=== PATIENT | female | born 1955 | race Caucasian/White ===

== ENCOUNTER 2024-12-15 17:41 | Emergency (ER) | payer MEDICARE, SELFPAY ==
[2024-12-15 17:48] VITALS: BP 134/92
[2024-12-15 18:49] VITALS: BP 134/90
[2024-12-15 19:00] VITALS: BP 129/90
--- NOTE | 2024-12-15 19:32 | ED.GENMED ---
History of Present Illness
<MEGAN Siegel - Last Filed: 12/15/24 22:08>
General
Chief Complaint: Eye Problems
Source: patient
Exam Limitations: none
Time Seen by Provider: 12/15/24 18:49
Nursing documentation reviewed up to this point in time: agreed with
History of Present Illness
History of Present Illness:
69-year-old yr old female who presents to the ER with complaints of left eye discomfort. She reports prior to arrival she was sitting having a glass of wine outside with her friend and suddenly noticed that her vision was foggy on her left eye and
then she is develop eye discomfort and a burning sensation. She complains of a sensation that there is something underneath her left upper eyelid. She denies however any foreign body in her eye that she recalls. Prior to my exam nurse reported
she also was c/o of a burning sensation in both of her lips , upper lower and b/l.
She does not wear contact lenses.Denies any rash to face/body. denies fevers .
Phy Exam
<MEGAN Siegel - Last Filed: 12/15/24 22:08>
General Physical Exam
General Presentation: no apparent distress
General age: appears stated age
General Skin: warm and dry
General Habitus: normal
General Mental: alert
General Hydration: appears well hydrated
Eye Exam
Eye Exam: PERRL, EOMI and other (Left cornea is injected no corneal abrasion examined with fluorescein no dye uptake, lid everted no foreign body on it appears irritated watery ; intraocular pressure 18 )
Able to obtain acuity?: Yes
Eye Exam General: PERRL: bilateral and EOM intact: bilateral
Pupil Exam: Bilateral: round and reactive
Neurological Exam
Neurological Exam: alert and oriented x3
Musculoskeletal Exam
Musculoskeletal Exam: full ROM
Skin Exam
Skin Exam: normal color, warm/dry and no rash
Psychiatric Exam
Psychiatric Exam: normal mood/affect
Course
<DESIREE SiegelNP - Last Filed: 12/15/24 22:08>
Orders/Labs/Results
Orders:
Orders
12/15/24 20:07
Ibuprofen [Motrin] 600 mg PO NOW STA
12/15/24 21:58
Erythromycin (Ilotycin) [Erythromycin 0.5% Ophthalmic Ointment] See Dose Instructions OPHTH NOW STA
Vital Signs
Initial and Last Documented VS:
Initial Vital Signs
Temp Pulse Resp BP Pulse Ox
97.8 F 81 18 134/92 99
12/15/24 17:48 12/15/24 17:48 12/15/24 17:48 12/15/24 17:48 12/15/24 17:48
Last Documented Vital Signs
Temp Pulse Resp BP Pulse Ox
97.8 F 102 18 148/90 98
12/15/24 17:48 12/15/24 22:03 12/15/24 22:03 12/15/24 22:03 12/15/24 19:47
Cornetist consulted with Physician
Cornetist consulted with physician?: Yes
Name of Physician Consulted: Radha
<Kamlesh Garcia, - Last Filed: 12/15/24 22:49>
Orders/Labs/Results
Orders:
Orders
12/15/24 20:07
Ibuprofen [Motrin] 600 mg PO NOW STA
12/15/24 21:58
Erythromycin (Ilotycin) [Erythromycin 0.5% Ophthalmic Ointment] See Dose Instructions OPHTH NOW STA
Vital Signs
Initial and Last Documented VS:
Initial Vital Signs
Temp Pulse Resp BP Pulse Ox
97.8 F 81 18 134/92 99
12/15/24 17:48 12/15/24 17:48 12/15/24 17:48 12/15/24 17:48 12/15/24 17:48
Last Documented Vital Signs
Temp Pulse Resp BP Pulse Ox
97.8 F 102 18 148/90 98
12/15/24 17:48 12/15/24 22:03 12/15/24 22:03 12/15/24 22:03 12/15/24 19:47
<MEGAN Siegel - Last Filed: 12/15/24 22:08>
MDM/Problems Addressed
Differential Diagnosis Includes:
Not limited to foreign body cord abrasion
MDM/Problems Addressed:
Patient presents with left eye irritation though she denies any injury or known foreign body. She appears very uncomfortable eyes injected and watery there were no abrasion or foreign body noted. Normal pressure in eye.
No identified cause for patient's pain is possible that she had something in her eye and is still irritated from this. she denies any headache, fever or rash. She is non toxic appearing.
Patient was examined by ED physician will discharge with erythromycin ointment and close follow with her own assembly repairer Tuesday. Patient was given with her Meissen ointment and a prescription was sent to the pharmacy.
<MEGAN Siegel - Last Filed: 12/15/24 22:08>
*Pulse Oximetry
SaO2: 99
Oxygen Mode of Delivery: Room air
Patient hypoxic: no
*Critical Care Note
Total Time (30-74mins, 75-104mins- exclusive of procedures): Not Applicable
ED Attending Note
<MEGAN Siegel - Last Filed: 12/15/24 22:08>
-
Portions of this chart may have been created with voice recognition software.� Occasional wrong word or��sound alike� substitutions may have occurred due to the inherent limitations of voice recognition software.
<Kamlesh Garcia DO - Last Filed: 12/15/24 22:49>
ED Attending Note
Patient seen and examined by attending physician: Yes
ED Attending Note:
I reviewed and agree with history and treatment plan by MEGAN Carroll. I examined revealed 69-year-old female with injected left sclera. No foreign bodies. No ulcer seen. Suspect possible unseen corneal abrasion versus allergic reaction.
Stable for discharge and will follow-up with her assembly repairer.
Discharge Plan
Departure
Patient Disposition: Home (Routine Discharge)
Date of Disposition: 12/15/24
Time of Disposition: 21:55
Patient with high blood pressure during this ER visit?: Yes
Condition: Fair
Covid-19: Not Applicable
Discharge Problem:
Eye irritation
Instructions: BLOOD PRESSURE
Prescriptions:
New
erythromycin 5 mg/gram (0.5 %) ointment
0.5 inch ophthalmic (eye) QID Qty: 3.5 0RF
Referrals:
Juliana Garcia MD [Family Provider]
Activity Restrictions/Additional Instructions:
EYE IRRITATION:
We do not visualize any foreign body in your eye however please use prescription which was sent to pharmacy.
As discussed use erythromycin ointment to left eye : Instill 1/2 inch of ointment into left eye 4 times daily for the next 3 to 5 days. Please follow-up with your assembly repairer on Tuesday return if any worsening of symptoms you may take ibuprofen
for pain.
Interventions
Interventions:
*Risk Screen - Suicide Last Done: 12/15/24 18:30
*General Assessment Last Done: 12/15/24 18:30
*Neglect/Abuse Screening Last Done: 12/15/24 18:30
*ED- Fall Risk Assessment Last Done: 12/15/24 18:30
*ED COVID-19 Vaccine History Last Done: 12/15/24 18:30
*Nursing Disposition Last Done: 12/15/24 22:11
Discharge Date and Time
Discharge Date/Time: 12/15/24 22:11
Print Language: [id number]
[2024-12-15] MEDS: MOTRIN 600 MG PO (20:07)
[2024-12-15] MEDS: ERYTHROMYCIN 0.5% OPHTHALMIC OINTMENT 1 APPLIC OPHTH (22:01)
[2024-12-15 22:03] VITALS: BP 148/90
== END 2024-12-15 22:11 | disposition home or self-care (01) ==
LOC: EMR 17:41
PROVIDERS: EMERGENCY PHYSICIAN Emergency Medicine; FAMILY PHYSICIAN Family Medicine
DX: H57.12 Ocular pain, left eye (principal)
CPT/HCPCS: 99282